=== PATIENT | male | born 1995 | race American Indian/Alaskan Native ===

== ENCOUNTER 2018-01-11 00:34 | Emergency (ER) | payer MEDICAID ==
[2018-01-11 00:56] VITALS: BMI 25.6
[2018-01-11 00:58] VITALS: TEMP 98.6; O2SAT 99
[2018-01-11] MEDS ORDERED: Sodium Chloride 0.9% 1,000 ML IV STA (01:00)
[2018-01-11] MEDS ORDERED: Morphine 4 mg/ml ISec IVP STA (01:00)
[2018-01-11 01:32] LABS: BASO # 0.01 K/mm3 (0.0-2.0); BASO % 0.1 % (0.0-3.0); GRAN # 6.05 (1.4-6.5); GRAN % 67.1 % (50.0-68.0); HEMOGLOBIN 14.8 g/dL (14.0-18.0); LYMPH # 2.2 (1.2-3.4); MEAN CELL VOLUME 92.4 fl (80.0-105.0); MEAN CORPUSCULAR HEMOGLOBIN 32.1 pg (25.0-35.0); MEAN CORPUSCULAR HGB CONC 34.7 g/dl (31.0-37.0); MEAN PLATELET VOLUME 9.3 fl (7.0-11.0); MONO # 0.8 (0.1-0.6); MONO % 8.8 % (1.0-6.0); RBC 4.61 10^6/uL (3.5-6.1); RED CELL DISTRIBUTION WIDTH 12.8 % (11.5-14.5)
[2018-01-11 01:39] LABS: ALB/GLOB RATIO 1.2 (1.1-1.8); ALBUMIN 5.4 g/dL (3.0-4.8); ALT/SGPT 26 U/L (7-56); AMYLASE 109 U/L (35-125); AST/SGOT 31 U/L (17-59); BLOOD UREA NITROGEN 24 mg/dL (7-21); CALCIUM 10.4 mg/dL (8.4-10.5); GFR AFRICAN-AMERICAN > 60; GFR NON-AFRICAN AMERICAN > 60; LIPASE 45 U/L (23-300)
[2018-01-11] MEDS ORDERED: Iohexol 350 MG/100 ML VIAL ONE (01:46)
--- NOTE | 2018-01-11 03:09 | ED PDOC ---
Arrival/HPI - General Historian: Patient <Dominique Cheatham - Last Filed: 01/12/18 09:43> <Viraj Fuentes - Last Filed: 01/12/18 12:25> - General Chief Complaint: Abdominal Pain Time Seen by Provider: 01/11/18 00:37 - History of Present Illness Narrative History of Present Illness (Text): 01/11/18 03:06 22-year-old male presents today with a 2 day history of worsening upper abdominal pain. Patient states he has had similar pain in the past and is being followed by a GI specialist. Patient states that he had an endoscopy performed the other days and is expecting to get the results tomorrow. Patient states that he has had decreased appetite and a burning sensation in the abdomen. Patient states he's having nausea and vomiting. He denies dizziness or weakness. He denies chest pain or shortness of breath. He denies fevers or chills. Patient denies radiation of pain to the back. He denies any urinary symptoms. He denies alcohol use. Patient states he has not been anything since yesterday due to the pain. Patient states the pain worsened today to the point where the pain became unbearable and he started vomiting. (Dominique Cheatham) Past Medical History - Provider Review Nursing Documentation Reviewed: Yes - Travel History Have you recently traveled outside [place] w/in the past 3 mons?: No - Infectious Disease Hx of Infectious Diseases: None <Dominique Cheatham - Last Filed: 01/12/18 09:43> Family/Social History - Physician Review Nursing Documentation Reviewed: Yes Family/Social History: Unknown Family HX Smoking Status: Never Smoked Hx Alcohol Use: No Hx Substance Use: Yes (marijuana) <Dominique Cheatham - Last Filed: 01/12/18 09:43> Allergies/Home Meds <Dominique Cheatham - Last Filed: 01/12/18 09:43> <Viraj Fuentes - Last Filed: 01/12/18 12:25> Allergies/Adverse Reactions: Allergies No Known Allergies Allergy (Verified 01/11/18 00:56) Review of Systems - Review of Systems Constitutional: absent: Fatigue, Fevers Respiratory: absent: SOB, Cough Cardiovascular: absent: Chest Pain, Palpitations Gastrointestinal: Abdominal Pain, Nausea, Vomiting. absent: Constipation, Diarrhea Genitourinary Male: absent: Dysuria, Frequency, Hematuria Musculoskeletal: absent: Arthralgias, Back Pain, Neck Pain Skin: absent: Rash, Pruritis Neurological: absent: Headache, Dizziness Psychiatric: absent: Anxiety, Depression, Suicidal Ideation <Dominique Cheatham - Last Filed: 01/12/18 09:43> Physical Exam Vital Signs Reviewed: Yes Temperature: Afebrile Blood Pressure: Normal Pulse: Regular Respiratory Rate: Normal Appearance: Positive for: Well-Appearing, Non-Toxic, Uncomfortable Pain Distress: None Mental Status: Positive for: Alert and Oriented X 3 - Systems Exam Head: Present: Atraumatic Mouth: Present: Moist Mucous Membranes Neck: Present: Normal Range of Motion Respiratory/Chest: Present: Clear to Auscultation, Good Air Exchange. No: Respiratory Distress, Accessory Muscle Use Cardiovascular: Present: Regular Rate and Rhythm, Normal S1, S2. No: Murmurs Abdomen: Present: Tenderness (+ ruq/luq, epigastric tenderness), Guarding. No: Distention, Peritoneal Signs, Rebound Back: Present: Normal Inspection. No: Midline Tenderness, Paraspinal Tenderness Upper Extremity: Present: Normal Inspection Lower Extremity: Present: Normal Inspection Neurological: Present: GCS=15, Speech Normal Skin: Present: Warm, Dry, Normal Color. No: Rashes Psychiatric: Present: Alert, Oriented x 3 <Dominique Cheatham - Last Filed: 01/12/18 09:43> Vital Signs Temp Pulse Resp BP Pulse Ox 01/11/18 06:12 85 16 127/79 99 01/11/18 04:00 81 18 127/74 98 01/11/18 02:11 126/78 01/11/18 00:56 98.6 F 94 H 20 99 Medical Decision Making Reassessment Condition: Re-examined, Improved <Dominique Cheatham - Last Filed: 01/12/18 09:43> - RAD Interpretation Electrical Repairer: Radiologist <Viraj Fuentes - Last Filed: 01/12/18 12:25> ED Course and Treatment: 01/11/18 03:09 Patient is nontoxic well appearing with stable vital signs presenting with severe abdominal pain pt given protonix, morphine, zofran and Normal saline . CBC wnl CMP wnl Amylase wnl Lipase wnl pt reassessment; pt feeling better after medications. sleeping in ER. Urinalysis pending CAT scan: pending case signed out to dr. fuentes pending CT results and re-evaluation (Dominique Cheatham) CT Abdomen and Pelvis shows: LOWER THORAX: Unremarkable. LIVER: Unremarkable. No gross lesion or ductal dilatation. GALLBLADDER AND BILE DUCTS: Unremarkable. PANCREAS: Unremarkable. No gross lesion or ductal dilatation. SPLEEN: Unremarkable. ADRENALS: Unremarkable. No mass. KIDNEYS AND URETERS: Unremarkable. No hydronephrosis. No solid mass. VASCULATURE: Unremarkable. No aortic aneurysm. BOWEL: Unremarkable. No obstruction. No gross mural thickening. APPENDIX: Normal appendix. PERITONEUM: Unremarkable. No free fluid. No free air. LYMPH NODES: Unremarkable. No enlarged lymph nodes. BLADDER: Unremarkable. REPRODUCTIVE: Unremarkable. BONES: No acute fracture. OTHER FINDINGS: The report concurs with the preliminary [facility] report IMPRESSION: No acute intra-abdominal findings 01/11/18 06:00 On reevaluation the patient feels better and is in no acute distress. I have discussed the results and plan with the patient, who expresses understanding. Patient given the opportunity to ask question, all questions were answered and there is agreement with the plan to discharge the patient home. Patient is stable for discharge. Patient was instructed to follow up with physician/clinic in 1-2 days or return if symptoms persist/worsen or new concerning symptoms arise. (Viraj Fuentes) - Lab Interpretations Lab Results: 01/11/18 01:15 01/11/18 01:15 Lab Results 01/11/18 04:27: Urine Color Yellow, Urine Appearance Sl cloudy, Urine pH 7.0, Ur Specific [place] 1.015, Urine Protein 30 H, Urine Glucose (UA) Negative, Urine Ketones 15 H, Urine Blood Negative, Urine Nitrate Negative, Urine Bilirubin Small H, Urine Urobilinogen 1.0 H, Ur Leukocyte Esterase Negative, Urine RBC 0 - 2, Urine WBC 0 - 2, Ur Epithelial Cells 0 - 2, Urine Bacteria Rare , Urine Other Mucus 01/11/18 01:15: WBC 9.0, RBC 4.61, Hgb 14.8, Hct 42.6, MCV 92.4, MCH 32.1, MCHC 34.7, RDW 12.8, Plt Count 334, MPV 9.3, Gran % 67.1, Lymph % (Auto) 24.0, [place] % (Auto) 8.8 H, Eos % (Auto) 0.0 L, Baso % (Auto) 0.1, Gran # 6.05, Lymph # ( Auto) 2.2, Dewitt # (Auto) 0.8 H, Eos # (Auto) 0.0, Baso # (Auto) 0.01 01/11/18 01:15: Sodium 144, Potassium 3.8, Chloride 96 L, Carbon Dioxide 29, Anion Gap 22 H, BUN 24 H, Creatinine 1.3, Est GFR ( Amer) > 60, Est GFR ( Non-Af Amer) > 60, Random Glucose 114 H, Calcium 10.4, Total Bilirubin 1.0, AST 31, ALT 26, Alkaline Phosphatase 80, Total Protein 9.8 H, Albumin 5.4 H, Globulin 4.4, Albumin/Globulin Ratio 1.2, Amylase 109, Lipase 45 - RAD Interpretation Radiology Orders: 01/11/18 00:57 CHEST PORTABLE [RAD] Stat 01/11/18 01:01 ABD & PELVIS IV CONTRAST ONLY [CT] Stat - Medication Orders Current Medication Orders: Discontinued Medications Sodium Chloride (Sodium Chloride 0.9%) 1,000 mls @ 999 mls/hr IV .Q1H1M STA Stop: 01/11/18 02:00 Last Admin: 01/11/18 01:30 Dose: 999 mls/hr eMAR Start Stop Document 01/11/18 01:30 AD (Rec: [facility]/11/18 [id number] Intravenous Solution Start Date 01/11/18 Start Time 01:30 Morphine Sulfate (Morphine) 4 mg IVP STAT STA Stop: 01/11/18 01:01 Last Admin: 01/11/18 01:30 Dose: 4 mg MAR Pain Assessment Document 01/11/18 01:30 AD (Rec: 01/11/18 01:54 [id number] Pain Reassessment Is this a pain reassessment? No Presence of Pain Presence of Pain Yes Pain Scale Used Pain Scale Used Numeric Description Intensity of Pain at present 10 Pain Behavior Facial Grimacing IVP Administration Document 01/11/18 01:30 AD (Rec: 01/11/18 01:54 [id number] Charges for Administration # of IVP Administrations 1 Morphine Sulfate (Morphine) 2 mg IVP STAT STA Stop: 01/11/18 04:36 Last Admin: 01/11/18 04:55 Dose: 2 mg MAR Pain Assessment Document 01/11/18 04:55 AD (Rec: 01/11/18 04:55 AD [id number]) Pain Reassessment Is this a pain reassessment? No Presence of Pain Presence of Pain Yes IVP Administration Document 01/11/18 04:55 AD (Rec: 01/11/18 04:55 AD [id number]) Charges for Administration # of IVP Administrations 1 Ondansetron HCl (Zofran Inj) 4 mg IVP STAT STA Stop: 01/11/18 01:01 Last Admin: 01/11/18 01:30 Dose: 4 mg IVP Administration Document 01/11/18 01:30 AD (Rec: 01/11/18 01:55 AD [id number]) Charges for Administration # of IVP Administrations 1 Ondansetron HCl (Zofran Inj) 4 mg IVP STAT STA Stop: 01/11/18 04:36 Last Admin: 01/11/18 04:55 Dose: 4 mg IVP Administration Document 01/11/18 04:55 AD (Rec: 01/11/18 04:55 AD [id number]) Charges for Administration # of IVP Administrations 1 Pantoprazole Sodium (Protonix Inj) 40 mg IVP STAT STA Stop: 01/11/18 01:02 Last Admin: 01/11/18 01:30 Dose: 40 mg IVP Administration Document 01/11/18 01:30 AD (Rec: 01/11/18 01:55 AD [id number]) Charges for Administration # of IVP Administrations 1 Disposition/Present on Arrival - Present on Arrival Any Indicators Present on Arrival: No History of DVT/PE: No History of Uncontrolled Diabetes: No Urinary Catheter: No History of Decub. Ulcer: No History Surgical Site Infection Following: None - Disposition Have Diagnosis and Disposition been Completed?: Yes Disposition Time: 06:00 Patient Plan: Discharge <Dominique Cheatham - Last Filed: 01/12/18 09:43> <Viraj Fuentes - Last Filed: 01/12/18 12:25> - Disposition Diagnosis: Abdominal pain Disposition: HOME/ ROUTINE Condition: GOOD Discharge Instructions (ExitCare): Stomach Ache and Stomach Upset Additional Instructions: Pepcid one tablet daily Increase fluids Follow up with primary care physician within the next 2 days Follow up with the GI specialist within the next 2 days. Return immediately if symptoms worsen persist or if new symptoms develop: High fevers, increasing pain, vomiting, diarrhea or any other concerning symptoms develop Prescriptions: Sucralfate [Carafate] 1 gm PO QID #16 tab Referrals: FAMILY PROVIDER,NO [Primary Care Provider] - Follow up with primary Forms: [employer] (Amharic)
[2018-01-11] MEDS ORDERED: Morphine 2 mg/ml ISec IVP STA (04:35)
[2018-01-11 04:49] LABS: URINE BILIRUBIN SMALL (NEGATIVE); URINE BLOOD NEGATIVE (NEGATIVE); URINE GLUCOSE (UA) NEGATIVE (NEGATIVE); URINE LEUKOCYTE ESTERASE NEGATIVE Leu/uL (NEGATIVE); URINE PROTEIN 30 mg/dL (<30 mg/dL)
[2018-01-11 05:00] LABS: URINE APPEARANCE SL CLOUDY (CLEAR); URINE COLOR YELLOW (YELLOW)
[2018-01-11 05:07] LABS: URINE BACTERIA RARE (NEG); URINE EPITHELIAL CELLS 0 - 2 /hpf (0-5); URINE RBC 0 - 2 /hpf (0-2); URINE WBC 0 - 2 /hpf (0-6)
[2018-01-11 07:52] VITALS: BP 127/79; PULSE 85; RESP 16
--- NOTE | 2018-01-11 08:28 | CT ---
Date of service: 01/11/2018 PROCEDURE: CT Abdomen and Pelvis with contrast HISTORY: abd pain COMPARISON: None. TECHNIQUE: Contrast dose: 100 cc of Omni 350 Radiation dose: Total exam DLP = 246 mGy-cm. This CT exam was performed using one or more of the following dose reduction techniques: Automated exposure control, adjustment of the mA and/or kV according to patient size, and/or use of iterative reconstruction technique. FINDINGS: LOWER THORAX: Unremarkable. LIVER: Unremarkable. No gross lesion or ductal dilatation. GALLBLADDER AND BILE DUCTS: Unremarkable. PANCREAS: Unremarkable. No gross lesion or ductal dilatation. SPLEEN: Unremarkable. ADRENALS: Unremarkable. No mass. KIDNEYS AND URETERS: Unremarkable. No hydronephrosis. No solid mass. VASCULATURE: Unremarkable. No aortic aneurysm. BOWEL: Unremarkable. No obstruction. No gross mural thickening. APPENDIX: Normal appendix. PERITONEUM: Unremarkable. No free fluid. No free air. LYMPH NODES: Unremarkable. No enlarged lymph nodes. BLADDER: Unremarkable. REPRODUCTIVE: Unremarkable. BONES: No acute fracture. OTHER FINDINGS: The report concurs with the preliminary [facility] report IMPRESSION: No acute intra-abdominal findings
--- NOTE | 2018-01-11 09:26 | RAD ---
Date of service: 01/11/2018 HISTORY: abd pain COMPARISON: No prior. FINDINGS: LUNGS: No active pulmonary disease. PLEURA: No significant pleural effusion identified, no pneumothorax apparent. CARDIOVASCULAR: Normal. OSSEOUS STRUCTURES: No significant abnormalities. VISUALIZED UPPER ABDOMEN: Normal. OTHER FINDINGS: None. IMPRESSION: No active disease.
--- NOTE | 2018-01-11 10:09 | CARD ---
APPROVED REPORT Date of service: 01/11/2018 EKG Measurement Heart [id number] <Conclusion> Sinus tachycardia Minimal voltage criteria for LVH, may be normal variant ST elevation, probably due to early repolarization Borderline ECG
== END 2018-01-11 06:12 | disposition home or self-care (01) ==
LOC: ED 00:34
DX: R10.10 Upper abdominal pain, unspecified (principal)
CPT/HCPCS: 71045; 74177; 80053; 81001; 82150; 83690; 85025; 93005; 96374; 96375; 96376; 99283; C9113; J2270; J2405; J7030; Q9967